=== PATIENT | male | born 1960 | race Caucasian/White ===

== ENCOUNTER 2016-11-10 20:16 | Emergency (ER) | payer OTHER ==
[~2016-11-10] VITALS: Ht 177.8 cm; Wt 128.9 kg
[~2016-11-10 20:16] MED LIST: ANTIVERT25 MG PO; CELEBREX200 MG; SIMVASTATIN; SIMVASTATIN40 MG
[2016-11-10 21:46] LABS: HEMATOCRIT 42.9 % (38.0-50.0); MCHC 32.4 G/DL (30.0-36.0); MCV 92.5 FL (86-99); MEAN PLAT.VOLUME 9.6 uM^3 (9.0-12.4); PLATELET COUNT 242 K/uL (156-360); RBC DIS.WIDTH-SD 47.1 % (39-53); RED BLOOD COUNT 4.64 M/uL (4.00-5.50); WHITE BLOOD COUNT 9.5 K/uL (4.1-10.2)
[2016-11-10 21:55] LABS: CHLORIDE 110 mEq/L (99-109); POTASSIUM 4.7 mEq/L (3.7-5.4); SODIUM 143 mEq/L (136-147)
[2016-11-10 21:57] LABS: GLUCOSE 102 mg/dL (70-99)
[2016-11-10 21:58] LABS: ANION GAP 10 MEQ/L (2-14)
[2016-11-10 21:59] LABS: TOTAL BILIRUBIN 0.8 mg/dL (0.0-1.0)
[2016-11-10 22:00] LABS: ALKALINE PHOSPHATASE 76 IU/L (3-129)
[2016-11-10 22:01] LABS: GFR ESTIMATE (CALCULATED) > 59 mL/min/
[2016-11-10 22:02] LABS: UREA NITROGEN (BUN) 21 mg/dL (9-23)
[2016-11-10 22:40] LABS: LIPASE 29 U/L (1.0-51.0)
[2016-11-10 23:22] LABS: ADD MIUA? NO; BILIRUBIN NEGATIVE; BLOOD NEGATIVE; COLOR YELLOW ((YELLOW)); GLUCOSE (STRIP) NEGATIVE; KETONES NEGATIVE; LEUKOCYTES NEGATIVE; NITRITE NEGATIVE; PROTEIN (STRIP) NEGATIVE; SPECIFIC GRAVITY 1.023 (1.000-1.030); UCUL ADDED? NO; UROBILINOGEN 0.2 MG/DL (0.2-1.0)
[2016-11-11] MEDS ORDERED: ZOFRAN ODT4 MG PO (00:24)
[2016-11-11] MEDS ORDERED: PERCOCET 5/31 TABLET PO (00:24)
[2016-11-11] MEDS ORDERED: OMEPRAZOLE20 MG PO (00:24)
[2016-11-11 00:50] VITALS: BP 147/100
== END 2016-11-11 00:51 | disposition home or self-care (01) ==
LOC: EME 20:16
DX: R10.13 Epigastric pain (principal); R14.0 Abdominal distension (gaseous); M54.5 Low back pain; E78.5 Hyperlipidemia, unspecified
CPT/HCPCS: 74177; 80053; 81003; 83690; 85027; 99281; 99285; J2270; J2405; J7030

== ENCOUNTER 2017-08-01 15:12 | Observation (INO) | payer OTHER ==
[~2017-08-01] VITALS: Ht 177.8 cm; Wt 132.5 kg
[~2017-08-01 15:12] MED LIST changes: +OMEPRAZOLE20 MG PO; +PERCOCET 5/31 TABLET PO; -SIMVASTATIN40 MG; +ZOCOR40 MG PO; +ZOFRAN ODT4 MG PO
[2017-08-01 16:10] LABS: HEMATOCRIT 42.2 % (38.0-50.0); HEMOGLOBIN 14.2 G/DL (12.5-16.6); MCH 31.1 PG (29.0-34.0); MCHC 33.6 G/DL (30.0-36.0); MCV 92.3 FL (86-99); PLATELET COUNT 239 K/uL (156-360); RBC DIS.WIDTH-CV 13.6 % (11.8-14.6); RBC DIS.WIDTH-SD 45.9 % (39-53); RED BLOOD COUNT 4.57 M/uL (4.00-5.50); WHITE BLOOD COUNT 7.2 K/uL (4.1-10.2)
[2017-08-01 16:16] LABS: INTER. NORMALIZED RATIO 1.2
[2017-08-01 16:17] LABS: CHLORIDE 109 mEq/L (99-109); POTASSIUM 4.4 mEq/L (3.7-5.4); SODIUM 143 mEq/L (136-147)
[2017-08-01 16:19] LABS: GLUCOSE 108 mg/dL (70-99); PTT 28.9 SEC (25-37)
[2017-08-01 16:23] LABS: CREATININE 0.8 mg/dL (0.6-1.3); GFR ESTIMATE (CALCULATED) > 59 mL/min/ (58.99-99999)
[2017-08-01 16:24] LABS: UREA NITROGEN (BUN) 24 mg/dL (9-23)
[2017-08-01] MEDS ORDERED: NEURONTIN300 MG PO (20:25)
[2017-08-01] MEDS ORDERED: VENLAFAXINE HCL75 M3 PO (20:26)
[2017-08-01] MEDS ORDERED: ARTHRITIS PAIN650 M1 PO (20:26)
[2017-08-01 21:02] LABS: APPEARANCE CLEAR ((CLEAR)); BILIRUBIN NEGATIVE; BLOOD NEGATIVE; COLOR STRAW ((YELLOW)); GLUCOSE (STRIP) NEGATIVE; KETONES NEGATIVE; LEUKOCYTES NEGATIVE; NITRITE NEGATIVE; PROTEIN (STRIP) NEGATIVE; SPECIFIC GRAVITY 1.036 (1.000-1.030); UCUL ADDED? NO; UROBILINOGEN 0.2 MG/DL (0.2-1.0)
[2017-08-02 02:13] LABS: MAGNESIUM 2.4 mg/dL (1.3-2.7)
[2017-08-02 02:17] LABS: TOTAL BILIRUBIN 0.5 mg/dL (0.0-1.0)
[2017-08-02 02:18] LABS: ALKALINE PHOSPHATASE 60 IU/L (3-129)
[2017-08-02 02:20] LABS: AST (GOT) 27 IU/L (2-34)
[2017-08-02 02:21] LABS: ALT (GPT) 24 IU/L (3-49)
[2017-08-02 02:47] LABS: HDL CHOLESTEROL 28 MG/DL (Desirable>=40); NON-HDL CHOLESTEROL 153 mg/dL (Desirable<160); TOTAL CHOLESTEROL 181 mg/dL (Desirable<200); TRIGLYCERIDES 421 MG/DL (Normal: <150)
[2017-08-02 03:00] VITALS: BP 134/98
[2017-08-02 07:02] LABS: TROP-I INTERPRETATION NEGATIVE; TROPONIN-I < 0.01 ng/mL (0.0-0.30)
[2017-08-02 07:41] LABS: THYROTROPIN (TSH) 1.2 MIU/L (0.4-5.5)
[2017-08-02 07:47] VITALS: BP 127/82
[2017-08-02 07:53] LABS: FOLIC ACID (FOLATE) > 22.0 NG/ML (5.0-22.0)
[2017-08-02 12:28] VITALS: BP 125/78
[2017-08-02 12:30] LABS: TROP-I INTERPRETATION NEGATIVE; TROPONIN-I < 0.01 ng/mL (0.0-0.30)
[2017-08-02 17:49] VITALS: BP 121/88
[2017-08-02 21:00] VITALS: BP 126/78
[2017-08-03 00:50] VITALS: BP 100/65
[2017-08-03 04:59] VITALS: BP 107/57
[2017-08-03 16:36] VITALS: BP 123/79
[2017-08-03 19:48] VITALS: BP 117/73
[2017-08-04 00:02] VITALS: BP 133/80
[2017-08-04 05:05] VITALS: BP 119/78
[2017-08-04 08:07] VITALS: BP 122/75
[2017-08-04] MEDS ORDERED: XARELTO20 MG PO (11:03)
[2017-08-04] MEDS ORDERED: LOPRESSOR25 MG PO (11:03)
[2017-08-04] MEDS ORDERED: FUROSEMIDE20 MG PO (11:04)
[2017-08-04] MEDS ORDERED: DILTIAZEM 24HR120 MG PO (11:04)
== END 2017-08-04 13:29 | disposition home or self-care (01) ==
LOC: EME 15:12 → 4EAST 08-02 00:58 → EDOF 08-02 00:58 → 4EAST 08-02 00:58 → ENRESERV 08-02 01:00 → 4EAST 08-02 02:43
PROVIDERS: Hospitalist; Physician Assistant
PROC: B246ZZZ Ultrasonography of Right and Left Heart (ICD-10-PCS; principal; 2017-08-02)
DX: I48.92 Unspecified atrial flutter (principal); R00.0 Tachycardia, unspecified; M79.661 Pain in right lower leg; M51.17 Intervertebral disc disorders with radiculopathy, lumbosacral region; M47.27 Other spondylosis with radiculopathy, lumbosacral region; R07.89 Other chest pain; E78.5 Hyperlipidemia, unspecified; E66.01 Morbid (severe) obesity due to excess calories; I34.0 Nonrheumatic mitral (valve) insufficiency; I27.20 Pulmonary hypertension, unspecified; Z98.84 Bariatric surgery status; F10.10 Alcohol abuse, uncomplicated; G47.30 Sleep apnea, unspecified; E78.00 Pure hypercholesterolemia, unspecified; I25.10 Atherosclerotic heart disease of native coronary artery without angina pectoris; R06.02 Shortness of breath
CPT/HCPCS: 71275; 72148; 80048; 80053; 80061; 81003; 82607; 82746; 83735; 84443; 84484; 85027; 85049; 85610; 85730; 93005; 93306; 93971; 94799; 99281; 99285; G0378; J1650; J1885; J2405; J7030

== ENCOUNTER 2017-08-04 17:46 | Emergency (ER) | payer OTHER ==
[~2017-08-04] VITALS: Ht 177.8 cm; Wt 127.8 kg
[~2017-08-04 17:46] MED LIST changes: +ARTHRITIS PAIN650 M1 PO; +DILTIAZEM 24HR120 MG PO; +FUROSEMIDE20 MG PO; +LOPRESSOR25 MG PO; +NEURONTIN300 MG PO; +VENLAFAXINE HCL75 M3 PO; +XARELTO20 MG PO
[2017-08-04 17:47] VITALS: BP 131/89
== END 2017-08-04 18:29 | disposition home or self-care (01) ==
LOC: EME 17:46
DX: S61.012A Laceration without foreign body of left thumb without damage to nail, initial encounter (principal); S61.213A Laceration without foreign body of left middle finger without damage to nail, initial encounter; W26.8XXA Contact with other sharp object(s), not elsewhere classified, initial encounter; Y93.G3 Activity, cooking and baking; Z23 Encounter for immunization
CPT/HCPCS: 99281; 99283

== ENCOUNTER 2017-08-28 09:12 | Day surgery (SDC) | payer OTHER ==
[~2017-08-28] VITALS: Ht 177.8 cm; Wt 126.0 kg
== END 2017-08-28 12:05 | disposition home or self-care (01) ==
LOC: CATH 09:12
PROC: 5A2204Z Restoration of Cardiac Rhythm, Single (ICD-10-PCS; principal; 2017-08-28)
DX: I48.3 Typical atrial flutter (principal); I11.0 Hypertensive heart disease with heart failure; I50.32 Chronic diastolic (congestive) heart failure; E66.01 Morbid (severe) obesity due to excess calories; Z68.39 Body mass index [BMI] 39.0-39.9, adult; E78.5 Hyperlipidemia, unspecified; G47.33 Obstructive sleep apnea (adult) (pediatric); Z86.73 Personal history of transient ischemic attack (TIA), and cerebral infarction without residual deficits; Z79.01 Long term (current) use of anticoagulants; Z98.84 Bariatric surgery status
CPT/HCPCS: 93005; J2250